=== PATIENT | female | born 1995 | race Two or more races ===

== ENCOUNTER 2017-09-13 22:40 | Inpatient (IN) | payer BC, OTHER ==
[2017-09-13 22:45] VITALS: BMI 26.4
--- NOTE | 2017-09-13 22:50 | PDOC ---
History of Present Illness - History of Present Illness Initial Comments: 09/13/17 23:15 The patient is a 21 year old female, with no significant past medical history, who presents to the emergency department with RLQ and throat pain around 10: 30pm. Patient states she was eating a chicken wing when a bone became stuck in her throat. She tried to swallow it as well as choke it out. She stated she drank some liquid and is able to properly talk and breathe without issue. She is also complaining of RLQ abdominal pain that is tender to palpation. She states her RLQ abdominal pain became worse on the car ride to the hospital. She denies recent fevers, chills, headache or dizziness. She denies recent nausea, vomit, diarrhea or constipation. She denies recent dysuria, frequency, urgency or hematuria. She denies recent chest pain or shortness of breath. Allergies: NKA Past surgical history: None reported. Social history: Nonsmoker. Denies EtOH use and recreational drug use. <Charlotte Gallego - Last Filed: 09/13/17 23:15> <Yessica Flores - Last Filed: 09/14/17 02:42> - General Chief Complaint: Pain Stated Complaint: STOMACH PAIN Time Seen by Provider: 09/13/17 22:47 Past History <Charlotte Gallego - Last Filed: 09/13/17 23:15> - Past Medical History COPD: No - Suicide/Smoking/Psychosocial Hx Smoking History: Never smoked <Yessica Flores - Last Filed: 09/14/17 02:42> - Past Medical History Allergies/Adverse Reactions: Allergies Allergy/AdvReac Type Severity Reaction Status Date / Time No Known Allergies Allergy Verified 09/13/17 22:43 Home Medications: Ambulatory Orders NK [No Known Home Medication] 09/13/17 Review of Systems - Review of Systems Comments:: 09/13/17 23:15 CONSTITUTIONAL: Absent: fever, no chills, no fatigue EYES: Absent: visual changes ENT: Present: Throat pain Absent: ear pain, no sore throat CARDIOVASCULAR: Absent: chest pain, no palpitations RESPIRATORY: Absent: cough, no SOB GI: Present: RLQ abdominal pain Absent: no nausea, no vomiting, no constipation, no diarrhea GENITOURINARY: Absent: dysuria, no frequency, no hematuria MUSCULOSKELETAL: Absent: back pain, no arthralgia, no myalgia SKIN: Absent: rash NEURO: Absent: headache <Charlotte Gallego - Last Filed: 09/13/17 23:15> *Physical Exam - Vital Signs Last Vital Signs Temp Pulse Resp BP Pulse Ox 98 F 86 18 128/65 100 09/13/17 22:43 09/13/17 22:43 09/13/17 22:43 09/13/17 22:43 09/13/17 22:43 - Physical Exam Comments: 09/13/17 23:16 GENERAL: Well-appearing, well-nourished. No apparent distress. HEENT: Normocephalic, atraumatic. PERRL, EOM intact. CARDIOVASCULAR: Normal S1, S2. Regular rate and rhythm. PULMONARY: Clear to auscultation bilaterally. ABDOMEN: RLQ tenderness to palpation. Soft, non-distended. EXTREMITIES: Normal ROM in all four extremities. No gross deformities. SKIN: Warm, dry. No rash NEUROLOGICAL: No focal neurological deficits. <Charlotte Gallego - Last Filed: 09/13/17 23:15> - Vital Signs Last Vital Signs Temp Pulse Resp BP Pulse Ox 98 F 86 18 128/65 100 09/13/17 22:43 09/13/17 22:43 09/13/17 22:43 09/13/17 22:43 09/13/17 22:43 <Yessica Flores - Last Filed: 09/14/17 02:42> ED Treatment Course - LABORATORY CBC & Chemistry Diagram: 09/13/17 23:04 09/13/17 23:04 <Yessica Flores - Last Filed: 09/14/17 02:42> Medical Decision Making - Medical Decision Making 09/14/17 01:15 21-year-old female developed right lower quadrant pain this evening Negative test CBC was within normal limits and her chemistries show hyperglycemia and 148 Microscopic hematuria on her urinalysis <Yessica Flores - Last Filed: 09/14/17 02:42> *DC/Admit/Observation/Transfer - Attestations Scribe Attestion: 09/13/17 23:17 Documentation prepared by Charlotte Gallego, acting as durable medical equipment repairer for Yessica Flores MD. <Charlotte Gallego - Last Filed: 09/13/17 23:15> - Discharge Dispostion Admit: Yes <Yessica Flores - Last Filed: 09/14/17 02:42> Diagnosis at time of Disposition: Appendicitis Qualifiers: Appendicitis type: acute appendicitis Acute appendicitis type: unspecified acute appendicitis type Qualified Code(s): K35.80 - Unspecified acute appendicitis; K35.80 - Unspecified acute appendicitis - Referrals Referrals: Conor Junior MD [Primary Care Provider] -
[2017-09-13 23:20] LABS: BASOPHIL 0.6 % (0-2.0); MCH 31.3 pg (25.7-33.7); MCHC 34.2 g/dl (32.0-36.0); MEAN CELL VOLUME 91.7 fl (80-96); MEAN PLT VOLUME 8.5 fl (7.5-11.1); PLATELET COUNT 228 K/MM3 (134-434); RDW 12.8 % (11.6-15.6); WHITE BLOOD COUNT 6.6 K/mm3 (4.0-10.0)
[2017-09-13 23:47] LABS: URINE APPEARANCE SLCLOUDY; URINE BILIRUBIN NEGATIVE (NEGATIVE); URINE BLOOD 3+ (NEGATIVE); URINE COLOR YELLOW; URINE GLUCOSE (UA) NEGATIVE (NEGATIVE); URINE KETONE NEGATIVE (NEGATIVE); URINE NITRITE NEGATIVE (NEGATIVE); URINE PROTEIN NEGATIVE (NEGATIVE); URINE UROBILINOGEN NEGATIVE mg/dL (0.2-1.0)
[2017-09-13 23:49] LABS: URINE BACTERIA RARE /hpf (NONE SEEN); URINE MUCUS RARE
[2017-09-13 23:58] LABS: ALBUMIN 4.1 g/dl (3.4-5.0); ALK PHOS 69 U/L (45-117); ANION GAP 10 (8-16); BILIRUBIN,TOTAL 0.2 mg/dL (0.2-1.0); CALCIUM 8.6 mg/dL (8.5-10.1); CO2 24 mmol/L (21-32); CREATININE 0.7 mg/dL (0.55-1.02); GLUCOSE,RANDOM 148 mg/dL (74-106); SGOT/AST 33 U/L (15-37); SGPT/ALT 49 U/L (12-78); TOT PROT 7.2 g/dl (6.4-8.2)
[2017-09-14] MEDS ORDERED: SODIUM CHLORIDE 1,000 ML IV STA (01:30)
--- NOTE | 2017-09-14 02:08 | PDOC ---
*Physical Exam - Vital Signs Last Vital Signs Temp Pulse Resp BP Pulse Ox 98 F 86 18 128/65 100 09/13/17 22:43 09/13/17 22:43 09/13/17 22:43 09/13/17 22:43 09/13/17 22:43 <Edward Zeng - Last Filed: 09/14/17 02:08> - Vital Signs Last Vital Signs Temp Pulse Resp BP Pulse Ox 98 F 86 18 128/65 100 09/13/17 22:43 09/13/17 22:43 09/13/17 22:43 09/13/17 22:43 09/13/17 22:43 <Yessica Flores - Last Filed: 09/14/17 03:00> - Vital Signs Last Vital Signs Temp Pulse Resp BP Pulse Ox 98 F 86 18 128/65 100 09/13/17 22:43 09/13/17 22:43 09/13/17 22:43 09/13/17 22:43 09/13/17 22:43 <Hillary Rankin - Last Filed: 09/14/17 03:02> ED Treatment Course - LABORATORY CBC & Chemistry Diagram: 09/13/17 23:04 09/13/17 23:04 - ADDITIONAL ORDERS Additional order review: Laboratory Results 09/13/17 09/13/17 09/13/17 23:04 23:04 23:04 Sodium 139 Potassium 3.8 Chloride 105 Carbon Dioxide 24 Anion Gap 10 BUN 18 Creatinine 0.7 Creat Clearance w eGFR > 60 Random Glucose 148 H Calcium 8.6 Total Bilirubin 0.2 AST 33 ALT 49 Alkaline Phosphatase 69 Total Protein 7.2 Albumin 4.1 Urine Color Yellow Urine Appearance Slcloudy Urine pH 6.0 Ur Specific [place] 1.029 Urine Protein Negative Urine Glucose (UA) Negative Urine Ketones Negative Urine Blood 3+ H Urine Nitrite Negative Urine Bilirubin Negative Urine Urobilinogen Negative Urine RBC 20-40 Urine WBC 60-100 Ur Epithelial Cells Few Urine Bacteria Rare Urine Mucus Rare Urine HCG, Qual Negative 09/13/17 23:04 RBC 4.26 MCV 91.7 MCHC 34.2 RDW 12.8 MPV 8.5 Neutrophils % 46.0 Lymphocytes % 40.3 H Monocytes % 10.1 Eosinophils % 3.0 Basophils % 0.6 <Edward Zeng - Last Filed: 09/14/17 02:08> - LABORATORY CBC & Chemistry Diagram: 09/13/17 23:04 09/13/17 23:04 - ADDITIONAL ORDERS Additional order review: Laboratory Results 09/13/17 09/13/17 09/13/17 23:04 23:04 23:04 Sodium 139 Potassium 3.8 Chloride 105 Carbon Dioxide 24 Anion Gap 10 BUN 18 Creatinine 0.7 Creat Clearance w eGFR > 60 Random Glucose 148 H Calcium 8.6 Total Bilirubin 0.2 AST 33 ALT 49 Alkaline Phosphatase 69 Total Protein 7.2 Albumin 4.1 Urine Color Yellow Urine Appearance Slcloudy Urine pH 6.0 Ur Specific [place] 1.029 Urine Protein Negative Urine Glucose (UA) Negative Urine Ketones Negative Urine Blood 3+ H Urine Nitrite Negative Urine Bilirubin Negative Urine Urobilinogen Negative Urine RBC 20-40 Urine WBC 60-100 Ur Epithelial Cells Few Urine Bacteria Rare Urine Mucus Rare Urine HCG, Qual Negative 09/13/17 23:04 RBC 4.26 MCV 91.7 MCHC 34.2 RDW 12.8 MPV 8.5 Neutrophils % 46.0 Lymphocytes % 40.3 H Monocytes % 10.1 Eosinophils % 3.0 Basophils % 0.6 - RADIOLOGY Radiology Studies Ordered: Category Date Time Status ABDOMEN & PELVIS CT WITH CONTR [CT] Stat CT Scan 09/14/17 01:07 Taken - Medications Given in the ED: ED Medications Discontinued Medications Generic Name Dose Route Start Last Admin Trade Name Savana PRN Reason Stop Dose Admin Sodium Chloride 1,000 mls @ 1,000 mls/hr 09/14/17 01:30 09/14/17 01:39 Normal Saline - IV 09/14/17 02:29 1,000 mls/hr ASDIR STA Administration <Yessica Flores - Last Filed: 09/14/17 03:00> - LABORATORY CBC & Chemistry Diagram: 09/13/17 23:04 09/13/17 23:04 - ADDITIONAL ORDERS Additional order review: Laboratory Results 09/13/17 09/13/17 09/13/17 23:04 23:04 23:04 Sodium 139 Potassium 3.8 Chloride 105 Carbon Dioxide 24 Anion Gap 10 BUN 18 Creatinine 0.7 Creat Clearance w eGFR > 60 Random Glucose 148 H Calcium 8.6 Total Bilirubin 0.2 AST 33 ALT 49 Alkaline Phosphatase 69 Total Protein 7.2 Albumin 4.1 Urine Color Yellow Urine Appearance Slcloudy Urine pH 6.0 Ur Specific [place] 1.029 Urine Protein Negative Urine Glucose (UA) Negative Urine Ketones Negative Urine Blood 3+ H Urine Nitrite Negative Urine Bilirubin Negative Urine Urobilinogen Negative Urine RBC 20-40 Urine WBC 60-100 Ur Epithelial Cells Few Urine Bacteria Rare Urine Mucus Rare Urine HCG, Qual Negative 09/13/17 23:04 RBC 4.26 MCV 91.7 MCHC 34.2 RDW 12.8 MPV 8.5 Neutrophils % 46.0 Lymphocytes % 40.3 H Monocytes % 10.1 Eosinophils % 3.0 Basophils % 0.6 - Medications Given in the ED: ED Medications Discontinued Medications Generic Name Dose Route Start Last Admin Trade Name Freq PRN Reason Stop Dose Admin Sodium Chloride 1,000 mls @ 1,000 mls/hr 09/14/17 01:30 09/14/17 01:39 Normal Saline - IV 09/14/17 02:29 1,000 mls/hr ASDIR STA Administration <Hillary Rankin - Last Filed: 09/14/17 03:02> Medical Decision Making - Medical Decision Making 09/14/17 02:42 Paged [facility] Surgery at 2:42 Awaiting call back. 09/14/17 02:[address] Vega Documentation prepared by Hillary Rankin, acting as internist medical doctor md for Edward Zeng MD/. <Hillary Rankin - Last Filed: 09/14/17 03:02> *DC/Admit/Observation/Transfer - Attestations Physician Attestion: 09/14/17 02:08 I, Dr. Edward Zeng, attest that this document has been prepared under my direction and personally reviewed by me in its entirety. I further attest, that it accurately reflects all work, treatment, procedures and medical decision -making performed by me. <Edward Zeng - Last Filed: 09/14/17 02:08> - Discharge Dispostion Admit: Yes Decision to Admit order Date/Time: Decision to Admit Order Category Date Time Status Decision to Admit to Hospital Routine Admission 09/14/17 02:42 Active <Yessica Flores - Last Filed: 09/14/17 03:00> <Hillary Rankin - Last Filed: 09/14/17 03:02> Diagnosis at time of Disposition: Appendicitis Qualifiers: Appendicitis type: acute appendicitis Acute appendicitis type: unspecified acute appendicitis type Qualified Code(s): K35.80 - Unspecified acute appendicitis - Referrals - Patient Instructions - Post Discharge Activity
[2017-09-14] MEDS ORDERED: PIPERACILLIN/TAZOB 3.375 GM 50 ML IVPB ONE (02:54)
--- NOTE | 2017-09-14 07:27 | CONSULT ---
Consult Consult Specialty:: general surgery Referred by:: RESHMA figueroa Reason for Consultation:: acute appendicitis - History of Present Illness Chief Complaint: abdominal pain worseing for 3-4 hours History of Present Illness: 21 yo female no significant past medical history presented to the emergency department after noticing abdominal pain after accidentally consuming a chicken bone while eating wings. She had some vague abdominal pain for one day even preceding that meal which was focal to the right lower quadrant and was noticeable on the ride to the hospital. She denied assocated fever and chills. She has no nausea or vomiting. She reports never having experienced a similar pain the the past. Her last menstruation was near [facility]. She has a normal bowel movement earlier in the day. She denied any urinary symptoms. We were called to evaluate her when the CT scan during the work up was read as acute appendicitis. - History Source History Provided By: Patient Limitations to Obtaining History: No Limitations - Past Medical History ...LMP: 09/06/17 (approximate) ...: No - Past Surgical History Past Surgical History: Yes: None - Alcohol/Substance Use Hx Alcohol Use: No History of Substance Use: reports: None - Smoking History Smoking history: Never smoked - Social History Usual Living Arrangement: With Parent Place of : [facility] History of Recent Travel: No Home Medications - Allergies Allergies/Adverse Reactions: Allergies Allergy/AdvReac Type Severity Reaction Status Date / Time No Known Allergies Allergy Verified 09/13/17 22:43 - Home Medications Home Medications: Ambulatory Orders NK [No Known Home Medication] 09/13/17 Family Disease History - Family Disease History Family History: Denies Review of Systems - Review of Systems Constitutional: reports: Malaise. denies: Loss of Appetite, Weakness Eyes: denies: Blind Spots, Blurred Vision HENT: denies: Difficult Swallowing, Nasal Congestion, Throat Pain Neck: denies: Stiffness, Swollen Glands Respiratory: denies: Cough, SOB Gastrointestinal: reports: Abdominal Pain, Indigestion, Other (swallowed a bone) Genitourinary: denies: Burning, Discharge, Dysuria Musculoskeletal: denies: Back Pain, Extremity Pain Integumentary: reports: Other (hirsutism). denies: Incision, Wound Neurological: denies: Confusion, Headache Endocrine: denies: Unexplained Weight Gain, Unexplained Weight Loss Psychiatric: denies: Anxiety, Depression Physical Exam Vital Signs: Vital Signs Temperature 97.9 F 09/14/17 02:52 Pulse Rate 81 09/14/17 02:52 Respiratory Rate 20 09/14/17 03:57 Blood Pressure 126/72 09/14/17 02:52 O2 Sat by Pulse Oximetry (%) 98 09/14/17 03:57 Constitutional: Yes: Well Nourished, Calm Eyes: Yes: Conjunctiva Clear, EOM Intact HENT: Yes: Atraumatic, Normocephalic Neck: Yes: Supple, Trachea Midline Cardiovascular: Yes: Regular Rate and Rhythm, S1, S2. No: Murmur Respiratory: Yes: Regular, CTA Bilaterally Gastrointestinal: Yes: Normal Bowel Sounds, Soft, Hypoactive Bowel Sounds, Other (discomfort on deep palpation of RLQ). No: Ascites, Hepatomegaly, Palpable Mass, Tenderness, Rebound ...Rectal Exam: Yes: Deferred Musculoskeletal: Yes: WNL. No: Joint Stiffness, Muscle Pain, Muscle Weakness Extremities: No: Amputation, Cool, Cyanosis Integumentary: No: Bruising, Jaundice Neurological: Yes: Alert, Oriented Psychiatric: Yes: Alert, Oriented Labs: CBC, BMP 09/13/17 23:04 09/13/17 23:04 Abnormal Lab Results 09/13/17 09/13/17 09/13/17 23:04 23:04 23:04 Lymphocytes % 40.3 H Random Glucose 148 H Urine Blood 3+ H Urine Test Results Urine Color Yellow 09/13/17 23:04 Urine Appearance Slcloudy 09/13/17 23:04 Urine pH 6.0 (5.0-8.0) 09/13/17 23:04 Ur Specific [place] 1.029 (1.001-1.035) 09/13/17 23:04 Urine Protein Negative (NEGATIVE) 09/13/17 23:04 Urine Glucose (UA) Negative (NEGATIVE) 09/13/17 23:04 Urine Ketones Negative (NEGATIVE) 09/13/17 23:04 Urine Blood 3+ (NEGATIVE) H 09/13/17 23:04 Urine Nitrite Negative (NEGATIVE) 09/13/17 23:04 Urine Bilirubin Negative (NEGATIVE) 09/13/17 23:04 Urine RBC 20-40 /hpf (0-3) 09/13/17 23:04 Urine WBC 60-100 /hpf (3-5) 09/13/17 23:04 Ur Epithelial Cells Few /hpf (FEW) 09/13/17 23:04 Urine Bacteria Rare /hpf (NONE SEEN) 09/13/17 23:04 Urine Mucus Rare 09/13/17 23:04 Imaging - Results Cat Scan: Report Reviewed (night hawk - dilated appendix consistent with acute appendicitis), Image Reviewed Problem List - Problems (1) Appendicitis Assessment/Plan: Early acute appendicitis Admit for 23 hour obs NPO IVF hydration adequate analgesia single dose antibiotics given by ED plan for Laparoscopic appendectomy possible open will discuss with patient Code(s): K37 - UNSPECIFIED APPENDICITIS Qualifiers: Appendicitis type: acute appendicitis Acute appendicitis type: unspecified acute appendicitis type Qualified Code(s): K35.80 - Unspecified acute appendicitis (2) Ingestion of foreign body Assessment/Plan: imaging reviewed for signs of calcified foreign body with radiologist - not visualized, no sign of perforation clinically, will manage expectantly Code(s): T18.9XXA - FOREIGN BODY OF ALIMENTARY TRACT, PART UNSP, INIT ENCNTR (3) Microscopic hematuria Assessment/Plan: IVF hydration consider repeat UA Code(s): R31.29 - OTHER MICROSCOPIC HEMATURIA
[2017-09-14] MEDS ORDERED: morphine CARPU-JECT 2 MG/1 ML DISP.SYRIN IVPUSH PRN ×2 (07:31→12:38)
[2017-09-14] MEDS ORDERED: ONDANSETRON 4 MG/2 ML VIAL IVPB PRN ×2 (07:31→12:38)
[2017-09-14] MEDS ORDERED: LACTATED RINGERS SOLUTION 1,000 ML/1,000 ML INFUS.BAG IV SCH (07:45)
[2017-09-14] MEDS ORDERED: LACTATED RINGERS SOLUTION 1,000 ML IV SCH ×2 (07:45→12:30)
--- NOTE | 2017-09-14 08:11 | HP ---
Admitting History and Physical - Primary Care Physician PCP: Ramiro Vega - Admission Chief Complaint: right lower quadrant abdominal pain History of Present Illness: 21 yo female no significant past medical or surgical history presented to the emergency department after noticing abdominal pain after accidentally consuming a chicken bone while eating wings. She had some vague abdominal pain for one day even preceding that meal which was focal to the right lower quadrant and was noticeable on the ride to the hospital. She denied associated fever and chills. She has no nausea or vomiting. She reports never having experienced a similar pain the the past. No previous abdominal surgery Her last menstruation was near [place]. She has a normal bowel movement earlier in the day. She denied any urinary symptoms. We were called to evaluate her when the CT scan during the work up was read as acute appendicitis. History Source: Patient Limitations to Obtaining History: No Limitations - Past Medical History ...LMP: 09/06/17 (approximate) ...: No - Past Surgical History Past Surgical History: Yes: None - Smoking History Smoking history: Never smoked - Alcohol/Substance Use Hx Alcohol Use: No History of Substance Use: reports: None - Social History History of Recent Travel: No Home Medications - Allergies Allergies/Adverse Reactions: Allergies Allergy/AdvReac Type Severity Reaction Status Date / Time No Known Allergies Allergy Verified 09/13/17 22:43 - Home Medications Home Medications: Ambulatory Orders NK [No Known Home Medication] 09/13/17 Review of Systems - Review of Systems Constitutional: denies: Loss of Appetite, Malaise, Night Sweats Eyes: denies: Blurred Vision, Recent Change in Vision HENT: denies: Difficult Swallowing, Nasal Congestion Neck: denies: Stiffness, Swollen Glands Cardiovascular: denies: Chest Pain, Shortness of Breath Respiratory: denies: Cough, SOB Gastrointestinal: reports: Abdominal Pain, Indigestion. denies: Dysphagia Genitourinary: reports: Hematuria (mircoscopic hematuria on UA 3+). denies: Burning, Discharge, Dysuria Breasts: denies: Lumps, Pain Musculoskeletal: denies: Extremity Pain, Joint Pain, Joint Swelling Integumentary: denies: Pruritis, Rash Neurological: denies: Confusion, Headache Endocrine: denies: Unexplained Weight Gain, Unexplained Weight Loss Hematology/Lymphatic: denies: Swollen Glands Psychiatric: denies: Altered Sleep Pattern, Anxiety Physical Examination Vital Signs: Vital Signs Temperature 97.9 F 09/14/17 02:52 Pulse Rate 81 09/14/17 02:52 Respiratory Rate 20 09/14/17 03:57 Blood Pressure 126/72 09/14/17 02:52 O2 Sat by Pulse Oximetry (%) 98 09/14/17 03:57 Constitutional: Yes: Well Nourished, No Distress, Calm Eyes: Yes: Conjunctiva Clear, EOM Intact HENT: Yes: Atraumatic, Normocephalic Neck: Yes: Supple, Trachea Midline Cardiovascular: Yes: Regular Rate and Rhythm, S1, S2. No: Murmur Respiratory: Yes: Regular, CTA Bilaterally Gastrointestinal: Yes: Normal Bowel Sounds, Soft, Other (mild discomfort RLQ on deep palpation). No: Hepatomegaly, Palpable Mass ...Rectal Exam: Yes: Deferred Renal/: No: CVA Tenderness - Left, CVA Tenderness - Right, Hematuria Extremities: Yes: Other (dense distribution of thick black hair). No: Cool, Cyanosis Edema: No Integumentary: Yes: Other (dense distribution of thick black hair truncal and extremities). No: Jaundice, Rash Neurological: Yes: Alert, Oriented Psychiatric: Yes: Alert, Oriented Labs: CBC, BMP 09/13/17 23:04 09/13/17 23:04 Urine Test Results Urine Color Yellow 09/13/17 23:04 Urine Appearance Slcloudy 09/13/17 23:04 Urine pH 6.0 (5.0-8.0) 09/13/17 23:04 Ur Specific [place] 1.029 (1.001-1.035) 09/13/17 23:04 Urine Protein Negative (NEGATIVE) 09/13/17 23:04 Urine Glucose (UA) Negative (NEGATIVE) 09/13/17 23:04 Urine Ketones Negative (NEGATIVE) 09/13/17 23:04 Urine Blood 3+ (NEGATIVE) H 09/13/17 23:04 Urine Nitrite Negative (NEGATIVE) 09/13/17 23:04 Urine Bilirubin Negative (NEGATIVE) 09/13/17 23:04 Urine RBC 20-40 /hpf (0-3) 09/13/17 23:04 Urine WBC 60-100 /hpf (3-5) 09/13/17 23:04 Ur Epithelial Cells Few /hpf (FEW) 09/13/17 23:04 Urine Bacteria Rare /hpf (NONE SEEN) 09/13/17 23:04 Urine Mucus Rare 09/13/17 23:04 Abnormal Lab Results 09/13/17 09/13/17 09/13/17 23:04 23:04 23:04 Lymphocytes % 40.3 H Random Glucose 148 H Urine Blood 3+ H Problem List - Problems (1) Appendicitis Assessment/Plan: Early acute appendicitis Admit for 23 hour obs NPO IVF hydration adequate analgesia single dose antibiotics given by ED plan for Laparoscopic appendectomy possible open findings discussed, informed consent obtained for laparoscopic cholecystectomy possible open after discussing the risks benefits and alternatives. She verbalized her understating and was given the opportunity to have her questions answered to her satisfaction. possible one day hospital stay Code(s): K37 - UNSPECIFIED APPENDICITIS Qualifiers: Appendicitis type: acute appendicitis Acute appendicitis type: unspecified acute appendicitis type Qualified Code(s): K35.80 - Unspecified acute appendicitis (2) Ingestion of foreign body Assessment/Plan: imaging reviewed for signs of calcified foreign body with radiologist - not visualized, no sign of perforation clinically, will manage expectantly Code(s): T18.9XXA - FOREIGN BODY OF ALIMENTARY TRACT, PART UNSP, INIT ENCNTR (3) Microscopic hematuria Assessment/Plan: IVF hydration consider repeat UA Code(s): R31.29 - OTHER MICROSCOPIC HEMATURIA (4) Hyperglycemia, unspecified Assessment/Plan: Continue to monitor, IVF hydration Code(s): R73.9 - HYPERGLYCEMIA, UNSPECIFIED (5) Female hirsutism Assessment/Plan: noticed during exam - truncal and all extremities, may be a normal variant, recommended f/u with PMD Code(s): L68.0 - HIRSUTISM
[2017-09-14] MEDS ORDERED: PROPOFOL 20 ML ONE (10:07)
[2017-09-14] MEDS ORDERED: SUCCINYLCHOLINE CHLORIDE 200 MG/10 ML VIAL ONE (10:07)
[2017-09-14] MEDS ORDERED: MIDAZOLAM HCL 2 MG/2 ML SINGLE DOSE VIAL ONE (10:08)
[2017-09-14] MEDS ORDERED: LIDOCAINE HCL/PF 2% SDV 5ML VIAL ONE (10:11)
[2017-09-14] MEDS ORDERED: CEFOXITIN SODIUM 1 GM IVPB ONE (10:59)
[2017-09-14] MEDS ORDERED: cefOXitin SODIUM 1 GM VIAL (RESTRICTED TO ID) IVPB ONE (11:03)
[2017-09-14] MEDS ORDERED: HYDROmorphone HCL/PF 1 MG/ML VIAL (FOR PYXIS CHARGING ONLY) ONE (11:24)
[2017-09-14] MEDS ORDERED: DEXAMETHASONE SOD PHOSPHATE 4 MG/1 ML VIAL ONE (11:25)
[2017-09-14] MEDS ORDERED: BUPIVACAINE HCL/PF 0.5% (5MG/ML) 10 ML VIAL ONE (11:31)
[2017-09-14] MEDS ORDERED: GLYCOPYRROLATE 0.2 MG/1 ML VIAL ONE (11:48)
[2017-09-14] MEDS ORDERED: KETOROLAC TROMETHAMINE 30 MG/1 ML VIAL ONE (11:48)
[2017-09-14] MEDS ORDERED: NEOSTIGMINE METHYLSULFATE 0.5 MG/ML - 10 ML MDV ONE (11:49)
[2017-09-14] MEDS ORDERED: BUPIVACAINE HCL/PF 0.5% (5MG/ML) 10 ML VIAL IJ ONE ×2 (11:57)
--- NOTE | 2017-09-14 12:16 | OP ---
Operative Note - Note: Operative Date: 09/14/17 Pre-Operative Diagnosis: early acute appendicitis Operation: laparoscopic appendectomy Findings: mid portion of appendix was mildly dilated Post-Operative Diagnosis: Same as Pre-op Surgeon: Ramiro Vega Anesthesiologist/TUBE DEPATCHER: Sunil Fontanez Anesthesia: General Specimens Removed: appendix Estimated Blood Loss (mls): 5 Drains & Tubes with Location: franco, removed at the endo of the case Operative Report Dictated: Yes
[2017-09-14] MEDS ORDERED: HYDROmorphone HCL CARPU-JECT 1 MG/1 ML DISP.SYRIN IVPUSH ONE (12:18)
[2017-09-14] MEDS ORDERED: PROMETHAZINE HCL 25 MG/1 ML VIAL IVPUSH PRN (16:13)
[2017-09-14] MEDS: LACTATED RINGERS SOLUTION 1,000 ML/1,000 ML INFUS.BAG IV SCH (17:13)
[2017-09-14 17:58] LABS: URINE LEUK ESTERASE Negative (NEGATIVE)
--- NOTE | 2017-09-14 20:36 | OP ---
DATE OF OPERATION: 09/14/2017 PREOPERATIVE DIAGNOSIS: Early acute appendicitis. POSTOPERATIVE DIAGNOSIS: Early acute appendicitis. PROCEDURE: Laparoscopic appendectomy. ESTIMATED BLOOD LOSS: 5 mL. TOTAL FLUIDS: 800 mL. ANESTHESIA: Local 0.5% Marcaine, a total of 10 mL, and general. ATTENDING SURGEON: Ramiro Vega MD ANESTHESIA: Sunil Fontanez MD BRIEF HISTORY: The patient is a 21-year-old female, presented to the emergency room, called as an emergency consult, with CAT scan reading of dilatation of mid appendix. She was noted to have some right lower quadrant pain and also had ingested a foreign body, which was not visualized on the CAT scan. She, on exam, was minimally tender in right lower quadrant but did recall right lower quadrant pain in the preceding day, evolving, worse on the car ride over. She was counseled regarding the findings, relative equivocal findings of her CT scan, as well as she was discussed the lab results, which was not suggestive of a severe appendicitis and only early, if any. The decision was made, after explaining the risks, benefits, and alternatives to surgical procedure proposed, she gave informed consent to proceed with laparoscopic appendectomy. PROCEDURE: The patient was brought to the operating room. She was placed in supine position in the operating table with the right arm perpendicular to body axis, and the left arm tucked. She was given intravenously Mefoxin 1 g prior to start of the case. She was induced with general anesthesia and endotracheally intubated. The patient was clipped, prepped and draped in the standard fashion, blocking the lower abdomen. We proceeded first with an entry site at the supraumbilical region. A size 12-mm Arlette port was opened, first in standard Arlette technique by opening the skin and carrying the dissection down to the anterior fascia of the rectus in the median raphe. This was then entered under direct visualization, Kochers used to elevate the fascia and a 0 vicryl stitch figure of 8 was laid in to the anterior rectus sheath. When the peritoneum was entered, it was explored bluntly to ensure that there was adhesions of intraabdominal structures to anterior abdominal wall. The site, once noted to be clear, had a size 12 Arlette introduced into the abdominal cavity and the tamponading balloon inflated. In standard fashion, a 0-degree 5- mm scope was introduced in the abdomen, inspecting the right lower quadrant as well as the remainder of the abdominal viscera. What was identified was a slightly dilated mid appendix, once it was elevated. The remaining trocars were then introduced in the abdominal wall under direct visualization, one at the suprapubic area in the midline, and the other in the right lower quadrant at the midpoint between, in the left lower quadrant in between the anterior superior iliac spine and the umbilicus. Once the 5-mm trocars were inserted through the operative ports, the appendix was identified. The patient was positioned with a slight Trendelenburg position to facilitate adequate dissection. The appendix was identified and grasped. [place] dissector was used to identify the terminal ileum at its confluence with the cecum. With the appendix grabbed along its body just proximal to the dilated segment in the mid appendix, a window was developed between the mesoappendix and the base of the appendix with the [place]. We proceeded then with re-sighting the camera visualization to the 5-mm port and proceeding with first a blue load in the Endo stapler, across the base of the appendix. Care was taken to avoid interposing any additional intraabdominal viscera in the stapling device, and when clear for firing, the transection was made across the base of the appendix. The appendix remained tethered by the mesoappendix, at which point we proceed then with a careful dissection away from the wall, where it was slightly adherent to the retroperitoneum near the base. Two firings of a white-loaded Endo KARI were used to transect the mesoappendix without incident. We then proceeded with a small amount of irrigation in the site, with the patient leveled, and suctioning the small amount of bloody affluent and additional abhinav in the field. The surgical site was inspected. Both the terminal ileum and cecum were noted to be atraumatic. The bowel was returned to its normal anatomic position. We then proceeded to remove the ports under direct visualization to ensure hemostasis on the field. The final Arlette was removed with the camera. The sites were then irrigated and we proceeded with closure, first at the umbilicus by pulling our [id number] suture, which we placed in during Arlette opening, 0 Vicryl was tied securely and snug. The 5-mm port sites were then closed with 4-0 Biosyn in a horizontal mattress and the umbilicus closed with a single running subcuticular 4-0 Biosyn as well. Skin was cleaned. Sterile dressings were placed including benzoin and Steri-Strips and a gauze sponge and Tegaderm at each site. The patient was awoken from general anesthesia, having tolerated procedure well, in stable condition throughout the procedure. She was returned to recovery room. All instrument counts were correct MD NAVNEET Mccollum/[id number] MTDManisha
[2017-09-15] MEDS: LACTATED RINGERS SOLUTION 1,000 ML/1,000 ML INFUS.BAG IV SCH (05:00)
--- NOTE | 2017-09-15 07:10 | DS ---
Physical Examination Vital Signs: Vital Signs Temperature 98.3 F 09/15/17 06:00 Pulse Rate 82 09/15/17 06:00 Respiratory Rate 20 09/15/17 06:00 Blood Pressure 97/41 09/15/17 06:00 O2 Sat by Pulse Oximetry (%) 98 09/14/17 21:00 Findings/Remarks: She feels much better today. Tolerated dinner, rated pain 0/10, has been OOB, voiding. Reports no BM or flatus yet but she feel hungry. Constitutional: Yes: Well Nourished, No Distress, Calm Eyes: Yes: Conjunctiva Clear, EOM Intact HENT: Yes: Atraumatic, Normocephalic Neck: Yes: Supple, Trachea Midline Cardiovascular: Yes: Regular Rate and Rhythm, S1, S2. No: Murmur Respiratory: Yes: Regular, CTA Bilaterally. No: Rales, Rhonchi, SOB Gastrointestinal: Yes: Normal Bowel Sounds, Soft ...Rectal Exam: Yes: Deferred Renal/: Yes: Polyuria (likely due to IVF). No: Hematuria (no gross hematuria) Musculoskeletal: No: Muscle Pain, Muscle Weakness Extremities: No: Calf Tenderness, Cool, Cyanosis Edema: No Integumentary: Yes: Bruising (right anterior bucio - states she fell a week ago) . No: Jaundice Wound/Incision: Yes: Clean/Dry, Other (bandages are clean and dry) Neurological: Yes: Alert, Oriented Psychiatric: Yes: Alert, Oriented Labs: CBC, BMP 09/13/17 23:04 09/13/17 23:04 Discharge Summary Reason For Visit: APPENDICITIS Current Active Problems Appendicitis (Acute) Female hirsutism (Acute) Hyperglycemia, unspecified (Acute) Ingestion of foreign body (Acute) Microscopic hematuria (Acute) Procedures: Principal: Laparoscopic Appendectomy Hospital Course: She was admitted with complaints of right lower quadrant abdominal pain and suggestive imaging and a reports of an ingested foreign body. Taken for and uneventful laparoscopic appendectomy. Had some post operative nausea. This morning tolerating diet, pain is well controlled, she is voiding, hematuria has resolved. She was given wound care instructions, detailed a followup plan with her PMD and myself. Time spent reviewing chart, examining patient, talking with patient and/or family and documentation in preparation for discharge is 35 minutes Condition: Good - Instructions Diet, Activity, Other Instructions: Postoperative instructions: You had a laparoscopic appendectomy on 09/14/[address] Ramiro Vega of [facility]. Activity: Resume your usual activities gradually, but no heavy exertion or lifting more than 10-15 pounds for 1 month. Remove dressings 48 hours after surgery; sticky tapes underneath will fall off by themselves. You may shower daily starting then, just pat the incision areas dry. Eat lightly at first, but advance to your usual diet as tolerated. Pain: For pain, you may use and alternate Tylenol (acetaminophen) and/or ibuprofen every 6 hours each as needed; this means that you can take one OR the other at 3-hour intervals. If you are prescribed a Tylenol/narcotic combination for severe pain, use it instead of plain Tylenol as needed and switch back when your pain starts decreasing. Do not take more than 4000mg of acetaminophen in a day. Take medications as prescribed or indicated on the labeling. Follow-up: Call Dr. Vega' office at [phone] to make your postop appointment (Tuesday ~2 weeks after surgery). Clinic is held in the [facility] on the first floor of [facility]. Call the office if you have: * increasing pain not responsive to pain medication * fever of 101F or higher * vomiting * unusual or increasing bleeding or drainage from wounds * increasing redness or swelling at wound sites * inability to urinate Also, see your primary medical doctor within 1-2 weeks. Referrals: Conor Junior MD [Primary Care Provider] - Disposition: HOME - Home Medications Comprehensive Discharge Medication List: Ambulatory Orders Percocet 5/325 1 tab PO [id number] prn pain
--- NOTE | 2017-09-15 10:10 | PN ---
Progress Note (short form) - Note Progress Note: Anesthesia postop note 21 y/o F s/p GA for laparoscopic appendectomy POD#1, vss, aaox3, pain well controlled No anesthesia complications.
[2017-09-15 10:34] VITALS: BP 100/42; PULSE 90; TEMP 98.8
[2017-09-15] MEDS ORDERED: KETOROLAC TROMETHAMINE 10 MG TABLET PO ONE (13:00)
--- NOTE | 2017-09-15 13:46 | PATH ---
Surgical Pathology Report Patient Name: BRENDAN KASPER Med. Rec. #: [id number] /Age/Gender: 1995 (Age: 21) / F Account: [id number] Location: [facility] MED/SURG Taken: 09/14/2017 Received: 09/14/2017 Reported: 09/15/2017 Physicians: Ramiro Vega M.D. Specimen(s) Received APPENDIX Clinical History Early acute appendicitis Final Diagnosis APPENDIX, LAPAROSCOPIC APPENDECTOMY: ACUTE APPENDICITIS. Electronically Signed Clarice Horton M.D. Gross Description Received in formalin, labeled "appendix," is a 7.3 cm. in length vermiform appendix with a stapled margin of resection and moderate attached fat. The serosa is salas-pink and smooth. Sectioning reveals a focally hemorrhagic lumen containing brown fecal material. The wall of the appendix averages 0.1 cm. in thickness. Lap Welder sections are submitted in one cassette. 09/14/2017 saudi09/14/2017
== END 2017-09-15 15:06 | disposition home or self-care (01) | DRG 343 ==
LOC: JER 22:40 → JERBED 09-14 02:42 → J8W 09-14 03:34
PROC: 0DTJ4ZZ Resection of Appendix, Percutaneous Endoscopic Approach (ICD-10-PCS; principal; 2017-09-14 10:30)
DX: K35.80 Unspecified acute appendicitis (principal); R31.29 Other microscopic hematuria; L68.0 Hirsutism; R73.9 Hyperglycemia, unspecified
CPT/HCPCS: 36415; 74177-TC; 80053; 81003; 81015; 84703; 85025; 88304-TC; 94760; 99285-25